=== PATIENT | female | born 1950 | race American Indian/Alaskan Native ===

== ENCOUNTER 2019-03-10 16:22 | Emergency (ER) | payer SELFPAY ==
--- NOTE | 2019-03-10 16:34 | Emergency Department Report ---
Blank Doc - Documentation Documentation: This is a 68-year-old female that presents with diarrhea and rhinnorrhea. Sis ter also stated that she has been itching her vaginal This initial assessment/diagnostic orders/clinical plan/treatment(s) is/are subject to change based on patient's health status, clinical progression and re- assessment by fellow clinical providers in the ED. Further treatment and workup at subsequent clinical providers discretion. Patient/guardians urged not to elope from the ED as their condition may be serious if not clinically assessed and managed. Initial orders include: 1- Patient sent to [facility] for further evaluation and treatment area as well. 2- UA
[2019-03-10 16:36] VITALS: BP 122/69
[2019-03-10 16:47] LABS: Basophils % (Auto) 0.4 % (0.0-1.8); Eosinophils % (Auto) 0.4 % (0.0-4.3); Hematocrit 40.9 % (30.3-42.9); Hemoglobin 13.6 gm/dl (10.1-14.3); Lymphocytes # (Auto) 1.3 K/mm3 (1.2-5.4); Lymphocytes % (Auto) 23.2 % (13.4-35.0); Mean Corpuscular HGB Conc 33 % (30-34); Mean Corpuscular Volume 87 fl (79-97); Monocytes # (Auto) 0.6 K/mm3 (0.0-0.8); Monocytes % (Auto) 10.4 % (0.0-7.3); Platelet Count 222 K/mm3 (140-440); Red Blood Count 4.72 M/mm3 (3.65-5.03)
[2019-03-10 17:01] LABS: BUN/Creatinine Ratio 16; Blood Urea Nitrogen 8 mg/dL (7-17); Hemolysis Index 4
[2019-03-10 17:03] LABS: Bacteria,Urine 1+ /HPF (Negative); Bilirubin,Urine NEG (Negative); Blood,Urine NEG (Negative); Color,Urine Yellow (Yellow); Mucus,Urine FEW /HPF; Protein,Urine <15 mg/dL mg/dL (Negative); Urobilinogen,Urine < 2.0 mg/dL (<2.0)
[2019-03-10] MEDS ORDERED: LEVAQUIN PO ONE (19:17)
--- NOTE | 2019-03-10 21:26 | Emergency Department Report ---
ED General Adult HPI - General Chief complaint: Nausea/Vomiting/Diarrhea Stated complaint: DIARRHEA/RUNNING NOSE Time Seen by Provider: 03/10/19 16:32 Source: family Mode of arrival: Ambulatory Limitations: Other - History of Present Illness Initial comments: 68-year-old -[place] female presents emergency Department with her sister haven't relocated from [place] about one month ago. Sister reports that Mrs. Chanel Vickers 's and some runny nose and various episodes of diarrhea off and on. She reports no fever, chills, sweats, hemoptysis, hematemesis, hematochezia, chest pain, palpitations, nausea or vomiting. There is been no constipation. No significant abdominal pain. She wanted her evaluated figure out why she had a runny nose and what where the diarrhea may have been coming from. There been no known adjustments in her diet. Her primary care provider isn't [place]. She has not yet found one in the [place] area. Radiation: non-radiation Consistency: constant Improves with: none Worsens with: none Associated Symptoms: denies: confusion, cough, headaches, shortness of breath, syncope Treatments Prior to Arrival: none - Related Data Previous Rx's Medication Instructions Recorded Last Taken Type Ciprofloxacin HCl [Ciprofloxacin 250 mg PO BID #14 tablet 03/10/19 Unknown Rx TAB] Mometasone Furoate [Nasonex] 17 gm NS DAILY #1 spray.pump 03/10/19 Unknown Rx Allergies Allergy/AdvReac Type Severity Reaction Status Date / Time No Known Allergies Allergy Verified 03/10/19 16:36 ED Review of Systems ROS: Stated complaint: DIARRHEA/RUNNING NOSE Other details as noted in HPI Comment: All other systems reviewed and negative ED Past Medical Hx - Past Medical History Hx Diabetes: Yes - Social History Smoking Status: Never Smoker Substance Use Type: None - Medications Home Medications: Home Medications Medication Instructions Recorded Confirmed Last Taken Type Ciprofloxacin HCl [Ciprofloxacin 250 mg PO BID #14 tablet 03/10/19 Unknown Rx TAB] Mometasone Furoate [Nasonex] 17 gm NS DAILY #1 spray.pump 03/10/19 Unknown Rx ED Physical Exam - General Limitations: Other General appearance: alert, in no apparent distress - Head Head exam: Present: atraumatic, normocephalic - Eye Eye exam: Present: normal appearance, PERRL, EOMI Pupils: Present: normal accommodation - ENT ENT exam: Present: mucous membranes moist - Neck Neck exam: Present: normal inspection - Respiratory Respiratory exam: Present: normal lung sounds bilaterally. Absent: respiratory distress - Cardiovascular Cardiovascular Exam: Present: regular rate, normal rhythm. Absent: systolic murmur, diastolic murmur, rubs, gallop - GI/Abdominal GI/Abdominal exam: Present: soft, normal bowel sounds - Extremities Exam Extremities exam: Present: normal inspection - Back Exam Back exam: Present: normal inspection - Neurological Exam Neurological exam: Present: alert, oriented X3 - Psychiatric Psychiatric exam: Present: normal affect, normal mood - Skin Skin exam: Present: warm, dry, intact, normal color. Absent: rash ED Course Vital Signs 03/10/19 16:32 Temperature 98.2 F Pulse Rate 102 H Respiratory 18 Rate Blood Pressure 122/69 O2 Sat by Pulse 98 Oximetry ED Medical Decision Making - Lab Data Result diagrams: 03/10/19 16:38 03/10/19 16:38 Critical care attestation.: If time is entered above; I have spent that time in minutes in the direct care of this critically ill patient, excluding procedure time. ED Disposition Clinical Impression: UTI (urinary tract infection), Rhinitis Disposition: DC-01 TO HOME OR SELFCARE Is pt being admited?: No Does the pt Need Aspirin: No Condition: Stable Instructions: Urinary Tract Infection in Women (ED), Phenazopyridine (By mouth), Dysuria (ED), Allergic Rhinitis (ED) Prescriptions: Ciprofloxacin HCl [Ciprofloxacin TAB] 250 mg PO BID #14 tablet Mometasone Furoate [Nasonex] 17 gm NS DAILY #1 spray.pump Referrals: ASIYA GONZALEZ MD [Primary Care Provider] - 3-5 Days
--- NOTE | 2019-03-10 23:03 | XRay Report ---
ACUTE ABDOMINAL SERIES INDICATION / CLINICAL INFORMATION: Abdominal pain and constipation.. COMPARISON: None available. FINDINGS: Upright and supine views of the abdomen demonstrate a normal bowel gas pattern without evidence of ob struction, free air or mass effect. There are multiple injection granulomata overlying the left pelvi s. The accompanying chest radiograph reveals a normal heart size and clear lungs. IMPRESSION: No acute abnormality. Signer Name: Stefano Henriquez MD Signed: 03/10/2019 8:00 PM Workstation Name: [id number]
== END 2019-03-10 22:00 | disposition home or self-care (01) ==
LOC: ED 16:22
DX: N39.0 Urinary tract infection, site not specified (principal); J31.0 Chronic rhinitis
CPT/HCPCS: 36415; 74022; 80048; 81001; 82962; 85025; 87086